=== PATIENT | male | born 1985 | race Caucasian/White ===

== ENCOUNTER 2016-06-21 12:07 | Emergency (ER) | payer OTHER ==
[~2016-06-21] VITALS: Ht 175.3 cm; Wt 87.5 kg
[2016-06-21 13:52] VITALS: BP 128/89
== END 2016-06-21 13:52 | disposition home or self-care (01) ==
LOC: ED 12:07
DX: M25.812 Other specified joint disorders, left shoulder (principal); M54.2 Cervicalgia; Z98.890 Other specified postprocedural states
CPT/HCPCS: J1885